=== PATIENT | male | born 1985 | race Caucasian/White ===

== ENCOUNTER 2016-06-12 00:47 | Emergency (ER) ==
[2016-06-12 00:58] VITALS: BP 160/116; TEMP 99.2; BMI 35.2
[2016-06-12] MEDS ORDERED: NORFLEX IM STA (01:36)
[2016-06-12] MEDS ORDERED: DILAUDID 2 MG/ML SYRINGE IM STA (01:36)
[2016-06-12] MEDS ORDERED: PHENERGAN 25 MG/ML VIAL IM STA (01:36)
--- NOTE | 2016-06-12 02:11 | CT ---
EXAM: CT scan lumbar spine HISTORY: Low back pain COMPARISON: MRI lumbar spine 05/04/2014 FINDINGS: Contiguous axial images were obtained through the lumbar spine utilizing 3-mm collimation . Sagittal and coronal reconstructions were imaged and reviewed. There is bilateral pars defect at L5. There is 3.5 mm anterolisthesis of L5 in relation to S1. Postoperative changes noted at L5-S1 co mpatible with prior discectomy and interbody fusion. Anterior metallic plate and screws are intact. . Transpedicular screw fixation is noted on the left L5-S1 There is mild pseudo disc bulge at L5-S1 . Central canal and foramen are patent.. Nonobstructive bilateral nephrolithiasis. IMPRESSION: Postoperative changes L5-S1 with intact hardware. 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
[2016-06-12] MEDS ORDERED: MORPHINE 4 MG/ML SYRINGE IM STA ×2 (02:26→05:26)
[2016-06-12] MEDS ORDERED: ZOFRAN 4 MG/2 ML IM STA ×2 (03:27→05:26)
[2016-06-12 03:49] LABS: BASOPHILS # (AUTO) 0.1 K/uL (0-0.2); BASOPHILS % (AUTO) 0.7 % (0.0-3.0); EOSINOPHILS # (AUTO) 0.7 K/ul (0.0-0.7); EOSINOPHILS % (AUTO) 7.9 % (0.0-7.0); HEMATOCRIT 31.8 % (42.0-52.0); HEMOGLOBIN 9.2 g/dl (14.0-18.0); IMMATURE GRANULOCYTE % (AUTO) 0.1 % (0.0-5.0); LYMPHOCYTES # (AUTO) 3.5 K/uL (0.60-3.4); LYMPHOCYTES % (AUTO) 39.3 (10.0-50.0); MEAN CORPUSCULAR HEMOGLOBIN 20.2 pg (27.0-31.0); MEAN CORPUSCULAR HGB CONC 28.9 (31.8-35.4); MEAN CORPUSCULAR VOLUME 69.9 fl (80.0-94.0); MONOCYTES # (AUTO) 0.4 K/uL (0.4-2.0); MONOCYTES % (AUTO) 4.9 (0-10); NEUTROPHILS # (AUTO) 4.2 K/ul (2.0-6.9); NEUTROPHILS % (AUTO) 47.1; PLATELET COUNT 498 10^3/uL (140-440); RED BLOOD COUNT 4.55 10^6/ul (4.70-6.10)
[2016-06-12 04:06] LABS: BUN/CREATININE RATIO 13.27; CREATININE 1.13 mg/dL (0.60-1.10)
--- NOTE | 2016-06-12 04:10 | CT ---
EXAM: CT of the abdomen and pelvis without contrast. HISTORY: Flank pain. History of kidney stones. PROCEDURE: Contiguous axial CT images of the abdomen and pelvis without contrast with coronal and s agittal reformats. FINDINGS: The liver, gallbladder, pancreas, spleen and adrenal glands are normal in appearance. The re are multiple nonobstructive calcifications in both kidneys. No ureterolithiasis or hydronephrosis . There is a small cyst in the right kidney. The abdominal aorta is normal in appearance. The visu alized loops of bowel and appendix are normal in appearance. No free fluid or free air in the abdom en or pelvis. The bladder is adequately filled with no abnormality identified. The seminal vesicles and prostate gland are unremarkable. There is surgical hardware in the spine. Impression: Nonobstructive bilateral nephrolithiasis as described. No ureterolithiasis or hydronep hrosis. Simple right renal cyst.
[2016-06-12 04:22] LABS: ERYTHROCYTE SEDIMENTATION RATE 10 mm/hr (0-15); ESR INTERNAL QC INTERNAL QC VALID
--- NOTE | 2016-06-12 05:30 | ED.PDOC ---
General ED Provider: Dr. AUSTNI SERRANO-ER Chief Complaint: Back Pain Stated Complaint: howie got back pain Time Seen by Physician: 00:55 Mode of Arrival: Walk-In Information Source: Patient Exam Limitations: No limitations Primary Care Provider: KIA COMBS Nursing and Triage Documentation Reviewed and Agree: Yes Musculoskeletal Complaint Exam - Back Pain Complaint/Exam Mechanism of Injury: Reports: No known trauma Onset/Duration: several weeks Symptoms Are: Still present Timing: Constant Initial Severity: Mild Current Severity: Moderate Location: Reports: Discrete Character: Reports: Dull, Aching, Throbbing Aggravating: Reports: Movements, Lifting, Bending, Walking Alleviating: Reports: None Associated Signs and Symptoms: Denies: Swelling, Redness, Bruising, Fever, Weakness, Numbness, Tingling, Abdominal pain, Flank pain, Bladder incontinence, Bowel incontinence, Weight loss, Pain with weight bearing Related History: Reports: Similar episode Cauda Equina Risk Factors: Reports: None Related Surgical History: Reports: Back Surgery Focal Tenderness: Yes Paraspinal Muscle Tenderness: Yes Paraspinal Muscle Spasm: No Scoliosis: No Lordosis: No Kyphosis: No SLR Test: Right Negative, Left Negative Hip Motion Testing Pain: Right Negative, Left Negative Focal Weakness: Present: None Focal Sensory Loss: Present: None Gait: Present: Abnormal Differential Diagnoses: Herniated Disk, Renal Colic Review of Systems - Review Of Systems Constitutional: Reports: No symptoms Eyes: Reports: No symptoms Ears, Nose, Mouth, Throat: Reports: No symptoms Respiratory: Reports: No symptoms Cardiac: Reports: No symptoms GI: Reports: No symptoms : Reports: No symptoms Musculoskeletal: Reports: Back pain Skin: Reports: No symptoms Neurological: Reports: No symptoms Endocrine: Reports: No symptoms Hematologic/Lymphatic: Reports: No symptoms All Other Systems: Reviewed and Negative Past Medical History - Past Medical History Previously Healthy: Yes Endocrine: Reports: None Cardiovascular: Reports: None Respiratory: Reports: None Hematological: Reports: None Gastrointestinal: Reports: None Genitourinary: Reports: Kidney stones Neuro/Psych: Reports: None Musculoskeletal: Reports: Back Pain Cancer: Reports: None - Surgical History General Surgical History: Reports: None - Family History Family History: Reports: None - Social History Smoking Status: Former smoker Hx Substance Use: No Alcohol Screening: None Lives: With family - Immunizations Tetanus Shot up to Date: Yes Physical Exam - Physical Exam Appearance: Well-appearing, No pain distress, Well-nourished Eyes: LITA, EOMI, Conjunctiva clear ENT: Ears normal, Nose normal, Oropharynx normal Neck: Supple Respiratory: Airway patent, Breath sounds clear, Breath sounds equal, Respirations nonlabored Cardiovascular: RRR, Pulses normal, No rub, No murmur GI/: Soft, Nontender, No masses, Bowel sounds normal, No Organomegaly Musculoskeletal: Limited ROM Skin: Warm, Dry, Normal color Neurological: Sensation intact, Motor intact, Reflexes intact, Cranial nerves intact, Alert, Oriented Psychiatric: Affect appropriate, Mood appropriate Interpretation - Radiology Interpretation Radiology Interpretation By: Radiologist Radiology Results: Positive Exam Interpreted: CT Scan Re-Evaluation - Re-Evaluation Time of Re-Evaluation: 06:16 Status: Improved Vital Signs Stable: Yes Pain Level: 2 Appearance: NAD Lungs: Clear Skin: Warm and Dry Neuro: Alert and Oriented X3 CV: RRR Critical Care Note - Critical Care Note Total Time (mins): 0 Course - Course Hematology/Chemistry: 06/12/16 03:45 06/12/16 03:45 Orders, Labs, Meds: Lab Review 06/12/16 03:45 WBC 8.90 RBC 4.55 L Hgb 9.2 L Hct 31.8 L MCV 69.9 L MCH 20.2 L MCHC 28.9 L RDW Coeff of Brigida 14.8 Plt Count 498 H Immature Gran % (Auto) 0.1 Neut % (Auto) 47.1 Lymph % (Auto) 39.3 Dickey % (Auto) 4.9 Eos % (Auto) 7.9 H Baso % (Auto) 0.7 Immature Gran # (Auto) 0.0 Neut # 4.2 Lymph # 3.5 H Dickey # 0.4 Eos # 0.7 Baso # 0.1 ESR 10 Sodium 142 Potassium 4.0 Chloride 107 Carbon Dioxide 24 Anion Gap 15.0 BUN 15 Creatinine 1.13 H Estimated GFR (MDRD) 75.00 BUN/Creatinine Ratio 13.27 Glucose 102 H Calcium 9.0 Orders Category Date Time Status BASIC METABOLIC PANEL Stat LAB 06/12/16 03:45 Completed BLOOD CULTURE Stat LAB 06/12/16 03:45 Received CBC W/ AUTO DIFF Stat LAB 06/12/16 03:45 Completed ESR Stat LAB 06/12/16 03:45 Completed Hydromorphone HCl/Pf [Dilaudid 2 mg/ml Syringe] MEDS 06/12/16 01:36 Discontinued 2 mg IM ONCE STA Morphine Sulfate [Morphine 4 mg/ml Syringe] MEDS 06/12/16 02:26 Discontinued 4 mg IM ONCE STA Morphine Sulfate [Morphine 4 mg/ml Syringe] MEDS 06/12/16 05:26 Discontinued 4 mg IM ONCE STA Ondansetron HCl/Pf [Zofran 4 mg/2 ml] MEDS 06/12/16 03:27 Discontinued 4 mg IM ONCE STA Ondansetron HCl/Pf [Zofran 4 mg/2 ml] MEDS 06/12/16 05:26 Discontinued 4 mg IM ONCE STA Orphenadrine Citrate [Norflex] MEDS 06/12/16 01:36 Discontinued 60 mg IM ONCE STA Promethazine HCl [Phenergan 25 mg/ml Vial] MEDS 06/12/16 01:36 Discontinued 25 mg IM ONCE STA CT ABD/PEL WO RENAL STONE PROT Stat RADS 06/12/16 03:[address] LUMBAR SPINE W/O CONTRAST Stat RADS 06/12/16 01:37 Completed Medications Discontinued Medications Generic Name Dose Route Start Last Admin Trade Name Freq PRN Reason Stop Dose Admin Hydromorphone HCl 2 mg 06/12/16 01:36 06/12/16 01:49 Dilaudid 2 Mg/Ml Syringe IM 06/12/16 01:37 2 mg ONCE STA Administration Morphine Sulfate 4 mg 06/12/16 02:26 06/12/16 02:35 Morphine 4 Mg/Ml Syringe IM 06/12/16 02:27 4 mg ONCE STA Administration Morphine Sulfate 4 mg 06/12/16 05:26 06/12/16 05:38 Morphine 4 Mg/Ml Syringe IM 06/12/16 05:27 4 mg ONCE STA Administration Ondansetron HCl 4 mg 06/12/16 03:27 06/12/16 03:48 Zofran 4 Mg/2 Ml IM 06/12/16 03:28 4 mg ONCE STA Administration Ondansetron HCl 4 mg 06/12/16 05:26 06/12/16 05:38 Zofran 4 Mg/2 Ml IM 06/12/16 05:27 4 mg ONCE STA Administration Orphenadrine Citrate 60 mg 06/12/16 01:36 06/12/16 01:49 Norflex IM 06/12/16 01:37 60 mg ONCE STA Administration Promethazine HCl 25 mg 06/12/16 01:36 06/12/16 01:50 Phenergan 25 Mg/Ml Vial IM 06/12/16 01:37 25 mg ONCE STA Administration Vital Signs: Temp Pulse Resp BP Pulse Ox 06/12/16 00:48 99.2 F 115 H 24 160/116 H 98 Departure - Departure Time of Disposition: 06:16 Disposition: HOME SELF-CARE Discharge Problem: Low back pain Qualifiers: Chronicity: unspecified Back pain laterality: bilateral Sciatica presence: without sciatica Qualifier Code: (M54.5) Low back pain Instructions: Back Pain (ED) Condition: Good Pt referred to PMD for follow-up: Yes Additional Instructions: percocet 7.5mg q 4hrs prn pain #10--f/u with pcp Allergies/Adverse Reactions: Allergies cat dander Adverse Reaction (Verified 02/21/16 18:26) PORK CHOPS Adverse Reaction (Uncoded 06/12/16 00:59) Hives GETS HIVES AND THROAT SWELLING IF EATS PORK CHOPS. IS OK WITH ANY OTHER TYPES OF PORK Home Medications: Ambulatory Orders Ranitidine HCl [Zantac] 150 mg PO TID 03/17/14 Baclofen 10 mg PO DAILY PRN 12/27/15 Clonazepam [Klonopin] 0.5 mg PO BID 12/27/15 Dextroamphetamine/Amphetamine [Adderall 10 mg Tablet] 20 mg PO DAILY 12/27/15 Pregabalin [Lyrica] 150 mg PO BID 12/27/15 Escitalopram Oxalate [Lexapro] 20 mg PO DAILY #30 01/06/16 Zolpidem Tartrate [Ambien] 10 mg PO BEDTIME 01/06/16 Disposition Discussed With: Patient
== END 2016-06-12 06:29 | disposition home or self-care (01) ==
LOC: ED 00:47
DX: M54.5 Low back pain (principal); Z79.899 Other long term (current) drug therapy; Z87.442 Personal history of urinary calculi
CPT/HCPCS: 36415; 74176; 80048; 85025; 85651; 87040; 96372; 99283

== ENCOUNTER 2016-11-19 14:58 | Emergency (ER) ==
[2016-11-19 15:04] VITALS: BP 152/87; TEMP 99.5; BMI 39.2
[2016-11-19] MEDS ORDERED: MORPHINE 10 MG/ML SYRINGE IVP STA (15:11)
[2016-11-19] MEDS ORDERED: MORPHINE 4 MG/ML VIAL IVP STA (15:11)
[2016-11-19] MEDS ORDERED: SODIUM CHLORIDE 1,000 ML IV STA (15:11)
[2016-11-19] MEDS ORDERED: ZOFRAN 4 MG/2 ML IVP STA (15:11)
[2016-11-19] MEDS ORDERED: PHENERGAN 25 MG/ML VIAL 25 MG in SODIUM CHLORIDE 50 ML IV STA (15:13)
[2016-11-19 15:26] LABS: BASOPHILS # (AUTO) 0.1 K/uL (0-0.2); BASOPHILS % (AUTO) 1.3 % (0.0-3.0); EOSINOPHILS # (AUTO) 0.5 K/ul (0.0-0.7); EOSINOPHILS % (AUTO) 9.5 % (0.0-7.0); HEMATOCRIT 30.4 % (42.0-52.0); HEMOGLOBIN 8.4 g/dl (14.0-18.0); IMMATURE GRANULOCYTE % (AUTO) 0.2 % (0.0-5.0); LYMPHOCYTES # (AUTO) 2.2 K/uL (0.60-3.4); LYMPHOCYTES % (AUTO) 40.2 (10.0-50.0); MEAN CORPUSCULAR HEMOGLOBIN 17.7 pg (27.0-31.0); MEAN CORPUSCULAR HGB CONC 27.6 (31.8-35.4); MEAN CORPUSCULAR VOLUME 64.1 fl (80.0-94.0); MONOCYTES # (AUTO) 0.3 K/uL (0.4-2.0); MONOCYTES % (AUTO) 6.1 (0-10); NEUTROPHILS # (AUTO) 2.3 K/ul (2.0-6.9); NEUTROPHILS % (AUTO) 42.7; PLATELET COUNT 429 10^3/uL (140-440); RED BLOOD COUNT 4.74 10^6/ul (4.70-6.10); WHITE BLOOD COUNT 5.45 K/ul (4.2-10.2)
[2016-11-19] MEDS ORDERED: PHENERGAN 25 MG/ML VIAL ONE (15:31)
--- NOTE | 2016-11-19 15:36 | CT ---
EXAM: Noncontrast CT of the abdomen and pelvis. HISTORY: Abdominal pain. COMPARISON: 12/27/2015. TECHNIQUE: Contiguous axial images at 3 mm intervals were obtained from lung bases through the pelvi s. No contrast was given. Coronal reformats were reviewed. FINDINGS: The study is limited without contrast. CHEST: The lung bases show no lobar consolidation or effusion. The heart size is within normal limi ts. ABDOMEN: Evaluation of the soft tissue organs is limited without contrast. The dome of the liver is not entirely imaged on the study. LIVER: Noncontrast images of the liver show no solid mass lesion or intrahepatic ductal dilatation. BILIARY: The gallbladder is not well distended. No gallstones are noted. No pericholecystic fluid or inflammation. The common bile duct is normal. SPLEEN: The spleen is unremarkable. PANCREAS: The pancreas shows no mass lesion or peripancreatic inflammation. ADRENAL GLANDS: The adrenal glands are normal. RENAL: The kidneys show no hydronephrosis. Multiple nonobstructing calcifications are seen bilatera lly. The largest on the left measures up to 5 mm and is unchanged. The largest on the right measure s up to 5 mm as well. There are no obstructing ureteral stones. No solid mass lesions are identifie d. RETROPERITONEUM: The aorta is unopacified. No aneurysm is identified. No aortic calcifications are seen. There is no retroperitoneal or mesenteric adenopathy. BOWEL: The bowel is unopacified. There is no obstruction or inflammatory change. There is no free fluid or free air. No significant inflammatory changes are seen. Minimal diverticulosis is seen wi thout evidence of acute diverticulitis. The appendix is identified and is normal. PELVIS: BLADDER: The bladder is not well distended which limits evaluation. GENITOURINARY STRUCTURES: The prostate is unremarkable. OSSEOUS STRUCTURES: The osseous structures are normal for age. There are postoperative changes with discectomy and fusion at at L5 S1. Pedicle screws are seen on the left as well. There is a bilatera l pars defect at L5. IMPRESSION 1. No acute intra-abdominal abnormality. Limited study without contrast. No obstructing ureteral s tones. 2. The appendix is normal. 3. Bilateral pars defect at L5. Postoperative changes at L5 S1. 4. Bilateral nephrolithiasis. No obstructing stones.
[2016-11-19 15:41] LABS: ANISOCYTOSIS 2+ (NOT PRESENT); HYPOCHROMASIA 3+ (NOT PRESENT); MICROCYTOSIS 3+ (NOT PRESENT); POIKILOCYTOSIS 3+ (NOT PRESENT)
[2016-11-19 15:42] LABS: OVALOCYTES 1+ (NOT PRESENT)
[2016-11-19 15:45] LABS: ALBUMIN 3.9 g/dL (3.4-5.0); ALBUMIN/GLOBULIN RATIO 1.22; ANION GAP 13.6; BILIRUBIN,TOTAL 0.3 mg/dL (0.00-1.20); BUN/CREATININE RATIO 9.4; CALCIUM 9.4 mg/dL (8.2-10.2); CREATININE 1.17 mg/dL (0.60-1.10); POTASSIUM 3.6 mmol/L (3.5-5.1); TOTAL PROTEIN 7.1 g/dL (6.4-8.2)
--- NOTE | 2016-11-19 16:11 | ED.PDOC ---
General ED Provider: Dr. LALITA KRAFT Chief Complaint: Kidney Stone Stated Complaint: renal stone Time Seen by Physician: 15:00 (seen with leroy has history of renal stones now has right flank pain) Mode of Arrival: Walk-In Information Source: Patient Exam Limitations: No limitations Primary Care Provider: KIA COMBS Nursing and Triage Documentation Reviewed and Agree: Yes Complaint Exam - Complaint/Exam Patient Complains of: Reports: Dysuria Onset/Duration: 1 day Symptoms Are: Still present Timing: Intermittent Initial Severity: Moderate Current Severity: Moderate Location of Pain: Reports: None Character: Reports: Colicky Aggravating: Reports: Voiding Associated Signs and Symptoms: Reports: Back pain, Dysuria. Denies: Diaphoresis , Fever, Hematuria, Constipation, Blood in stool, Rectal pain, Appetite change, Nausea, Vomiting, Penile swelling, Penile discharge, Decreased urine output, Increased urine frequency, Increased thirst, Decreased activity, Lethargy, Scrotal pain, Scrotal swelling, Abdominal Pain Testicular Torsion Risk Factors: Reports: None Surgical Obstruction Risk Factors: Reports: None Related Surgical History: Reports: None Abdominal Findings: Present: None Review of Systems - Review Of Systems Constitutional: Reports: No symptoms Eyes: Reports: No symptoms Ears, Nose, Mouth, Throat: Reports: No symptoms Respiratory: Reports: No symptoms Cardiac: Reports: No symptoms GI: Reports: No symptoms : Reports: Dysuria, Flank pain Musculoskeletal: Reports: No symptoms Skin: Reports: No symptoms Neurological: Reports: No symptoms Endocrine: Reports: No symptoms Hematologic/Lymphatic: Reports: No symptoms All Other Systems: Reviewed and Negative Past Medical History - Past Medical History Previously Healthy: Yes Endocrine: Reports: None Cardiovascular: Reports: None Respiratory: Reports: None Hematological: Reports: None Gastrointestinal: Reports: None Genitourinary: Reports: Kidney stones Neuro/Psych: Reports: None Musculoskeletal: Reports: Back Pain Cancer: Reports: None - Surgical History General Surgical History: Reports: None - Family History Family History: Reports: None - Social History Smoking Status: Former smoker Hx Substance Use: No Alcohol Screening: None - Immunizations Tetanus Shot up to Date: No Physical Exam - Physical Exam Appearance: Well-appearing, No pain distress, Well-nourished Eyes: LITA, EOMI, Conjunctiva clear ENT: Ears normal, Nose normal, Oropharynx normal Respiratory: Airway patent, Breath sounds clear, Breath sounds equal, Respirations nonlabored Cardiovascular: RRR, Pulses normal, No rub, No murmur GI/: Soft, Nontender, No masses, Bowel sounds normal, No Organomegaly Musculoskeletal: Normal strength, ROM intact, No edema, No calf tenderness Skin: Warm, Dry, Normal color Neurological: Sensation intact, Motor intact, Reflexes intact, Cranial nerves intact, Alert, Oriented Psychiatric: Affect appropriate, Mood appropriate Interpretation - Radiology Interpretation Radiology Interpretation By: Radiologist Radiology Results: No acute changes Exam Interpreted: CT Scan Re-Evaluation - Re-Evaluation Time of Re-Evaluation: 16:11 Status: Improved Vital Signs Stable: Yes Pain Level: 0 Appearance: NAD Lungs: Clear Skin: Warm and Dry Neuro: Alert and Oriented X3 CV: RRR Critical Care Note - Critical Care Note Total Time (mins): 0 Course - Course Hematology/Chemistry: 11/19/16 15:20 11/19/16 15:20 Orders, Labs, Meds: Lab Review 11/19/16 11/19/16 15:20 15:20 WBC 5.45 RBC 4.74 Hgb 8.4 L Hct 30.4 L MCV 64.1 L MCH 17.7 L MCHC 27.6 L RDW Coeff of Brigida 17.8 H Plt Count 429 Immature Gran % (Auto) 0.2 Neut % (Auto) 42.7 Lymph % (Auto) 40.2 Stone % (Auto) 6.1 Eos % (Auto) 9.5 H Baso % (Auto) 1.3 Immature Gran # (Auto) 0.0 Neut # 2.3 Lymph # 2.2 Stone # 0.3 L Eos # 0.5 Baso # 0.1 Hypochromasia 3+ Poikilocytosis 3+ Anisocytosis 2+ Microcytosis 3+ Ovalocytes 1+ Sodium 140 Potassium 3.6 Chloride 107 Carbon Dioxide 23 Anion Gap 13.6 BUN 11 Creatinine 1.17 H Estimated GFR (MDRD) 72.00 BUN/Creatinine Ratio 9.40 Glucose 138 H Calcium 9.4 Total Bilirubin 0.30 AST 11 L ALT 15 Alkaline Phosphatase 64 Total Protein 7.1 Albumin 3.9 Globulin 3.2 Albumin/Globulin Ratio 1.22 Orders Category Date Time Status ED IV/MEDIPORT/POWERPORT .ONCE EMERGENCY 11/19/16 15:10 Active CBC W/ AUTO DIFF Stat LAB 11/19/16 15:20 Completed COMPREHENSIVE METABOLIC PANEL Stat LAB 11/19/16 15:20 Completed RBC MORPHOLOGY Stat LAB 11/19/16 15:20 Completed URINALYSIS C & S IF INDICATED Stat LAB 11/19/16 15:10 Uncollected 0.9 % Sodium Chloride [Saline Flush] MEDS 11/19/16 15:10 Ordered 1 syr IVF PRN PRN Morphine Sulfate [Morphine 4 mg/ml Vial] MEDS 11/19/16 15:11 Discontinued 4 mg IVP ONCE STA Promethazine HCl [Phenergan 25 mg/ml Vial] MEDS 11/19/16 15:31 Discontinued 25 mg .ROUTE .STK-MED ONE Promethazine HCl [Phenergan 25 mg/ml Vial] 25 mg MEDS 11/19/16 15:13 Discontinued 0.9 % Sodium Chloride [Sodium Chloride] 50 ml IV ONCE Sodium Chloride 0.9% [Sodium Chloride] 1,000 ml MEDS 11/19/16 15:[address] ABDOMEN/PELVIS WO CONTRAST Stat RADS 11/19/16 15:10 Completed Medications Generic Name Dose Route Start Last Admin Trade Name Freq PRN Reason Stop Dose Admin Sodium Chloride 1,000 mls @ 1,000 mls/hr 11/19/16 15:11 11/19/16 15:35 Sodium Chloride IV 11/19/16 16:10 1,000 mls/hr BOLUS STA Administration Sodium Chloride 1 syr 11/19/16 15:10 11/19/16 15:35 Saline Flush IVF 1 syr PRN PRN Administration To flush IV Discontinued Medications Generic Name Dose Route Start Last Admin Trade Name Freq PRN Reason Stop Dose Admin Promethazine HCl 25 mg/ Sodium 51 mls @ 75 mls/hr 11/19/16 15:13 11/19/16 15: 38 Chloride IV 11/19/16 15:53 75 mls/hr ONCE STA Administration Morphine Sulfate 4 mg 11/19/16 15:11 11/19/16 15:38 Morphine 4 Mg/Ml Vial IVP 11/19/16 15:12 4 mg ONCE STA Administration Vital Signs: Temp Pulse Resp BP Pulse Ox 11/19/16 14:59 99.5 F 125 H 20 152/87 H 98 Departure - Departure Time of Disposition: 16:11 Disposition: HOME SELF-CARE Discharge Problem: Kidney stone Instructions: Kidney Stones (ED), Renal Colic (ED), How to Strain Your Urine ( ED), Flank Pain (ED) Condition: Good Pt referred to PMD for follow-up: Yes Additional Instructions: Please call your Family Physician as soon as possible to schedule a follow-up appointment. Allergies/Adverse Reactions: Allergies cat dander Adverse Reaction (Verified 11/19/16 15:05) PORK CHOPS Adverse Reaction (Uncoded 06/12/16 00:59) Hives GETS HIVES AND THROAT SWELLING IF EATS PORK CHOPS. IS OK WITH ANY OTHER TYPES OF PORK Home Medications: Ambulatory Orders Clonazepam [Klonopin] 0.5 mg PO BID 12/27/15 Dextroamphetamine/Amphetamine [Adderall 10 mg Tablet] 20 mg PO DAILY 12/27/15 Pregabalin [Lyrica] 150 mg PO BID 12/27/15 Escitalopram Oxalate [Lexapro] 20 mg PO DAILY #30 01/06/16 Zolpidem Tartrate [Ambien] 10 mg PO BEDTIME 01/06/16 Famotidine [Pepcid] 20 mg PO DIRECTED 11/19/16 Disposition Discussed With: Patient
[2016-11-19 17:01] LABS: BILIRUBIN,URINE Negative (NEGATIVE); KETONES,URINE Trace (NEGATIVE); LEUKOCYTE ESTERASE ,URINE Negative (NEGATIVE); NITRITE,URINE Negative (NEGATIVE); PH,URINE 5.5 (5-9); PROTEIN,URINE Trace (NEGATIVE); URINE, BLOOD 2+ (NEGATIVE)
[2016-11-19 17:03] LABS: ADD URINE MICROSCOPIC YES
[2016-11-19 17:04] LABS: BACTERIA,URINE TRACE (NOT PRESENT)
== END 2016-11-19 17:15 | disposition home or self-care (01) ==
LOC: ED 14:58
DX: N20.0 Calculus of kidney (principal)
CPT/HCPCS: 36415; 80053; 81001; 85008; 85025; 87086; 96361; 96365; 96375; 99283

== ENCOUNTER 2017-04-02 17:04 | Emergency (ER) ==
[2017-04-02 17:15] VITALS: BP 160/104; TEMP 98.2; BMI 38.0
--- NOTE | 2017-04-02 18:21 | CT ---
Exam: CT of the abdomen and pelvis without contrast History: Abdominal pain Technique: [address] of the abdomen and pelvis without intravascular contrast FINDINGS: Tree-in-bud nodular infiltrate of the right lower lobe. No consolidative opacities. No s ignificant liver abnormality. The adrenals, pancreas and spleen are unremarkable. The stomach and hia tus are unremarkable.The gallbladder is normal. Multiple bilateral nonobstructing nephrolithiasis. No ureterolithiasis is seen. Left collecting system duplication. The appendix is normal. Bowel loop s demonstrate normal caliber. No inflamatory change seen in the mesentery or retroperitoneum. Vascula r structures appear normal by noncontrast CT. Pelvic genitourinary structures appear normal. Pelvic bowel loops are unremarkable. No inflammatory c hange in the pelvic fat. No acute abnormality of the abdominal or pelvic skeleton. Impression: 1. No inflammatory process, bowel or urinary obstruction is seen. 2. Multiple bilateral nonobstructing nephrolithiasis 3. Right lower lobe tree-in-bud nodular infiltrate without consolidation. Correlate for pneumonitis .
--- NOTE | 2017-04-02 18:25 | ED.PDOC ---
General ED Provider: Dr. LALITA KRAFT Chief Complaint: Kidney Stone Stated Complaint: LEFT FLANK PAIN DYSURIA Time Seen by Physician: 17:00 Mode of Arrival: Walk-In Information Source: Patient Exam Limitations: No limitations Primary Care Provider: K[facility] COM[facility] Nursing and Triage Documentation Reviewed and Agree: Yes Reviewed sepsis parameters & appropriate labs ordered?: Yes System Inflammatory Response Syndrome: Not Applicable Sepsis Protocol: For patient's 13 years and over: Temp is 96.8 and below OR 101 and greater Pulse >90 BPM Resp >20/minute Acutely Altered Mental Status Are patient's symptoms suggestive of a new infection, such as: -Pneumonia -Skin, Soft Tissue -Endocarditis -UTI -Bone, Joint Infection -Implantable Device -Acute Abdominal Infection -Wound Infection -Meningitis -Blood Stream Catheter Infection -Unknown System Inflammatory Response Syndrome: Not Applicable Review of Systems - Review Of Systems Constitutional: Reports: No symptoms Eyes: Reports: No symptoms Ears, Nose, Mouth, Throat: Reports: No symptoms Respiratory: Reports: No symptoms Cardiac: Reports: No symptoms GI: Reports: No symptoms : Reports: Flank pain (LEFT) Musculoskeletal: Reports: No symptoms Skin: Reports: No symptoms Neurological: Reports: No symptoms Endocrine: Reports: No symptoms Hematologic/Lymphatic: Reports: No symptoms All Other Systems: Reviewed and Negative Past Medical History - Past Medical History Previously Healthy: Yes Endocrine: Reports: None Cardiovascular: Reports: None Respiratory: Reports: None Hematological: Reports: None Gastrointestinal: Reports: None Genitourinary: Reports: Kidney stones Neuro/Psych: Reports: None Musculoskeletal: Reports: Back Pain Cancer: Reports: None - Surgical History General Surgical History: Reports: None - Family History Family History: Reports: None - Social History Smoking Status: Former smoker Hx Substance Use: No Alcohol Screening: None Physical Exam - Physical Exam Appearance: Well-appearing, No pain distress, Well-nourished Eyes: LITA, EOMI, Conjunctiva clear ENT: Ears normal, Nose normal, Oropharynx normal Respiratory: Airway patent, Breath sounds clear, Breath sounds equal, Respirations nonlabored Cardiovascular: RRR, Pulses normal, No rub, No murmur GI/: Soft, Nontender, No masses, Bowel sounds normal, No Organomegaly Musculoskeletal: Normal strength, ROM intact, No edema, No calf tenderness Skin: Warm, Dry, Normal color Neurological: Sensation intact, Motor intact, Reflexes intact, Cranial nerves intact, Alert, Oriented Psychiatric: Affect appropriate, Mood appropriate Interpretation - Radiology Interpretation Radiology Interpretation By: Radiologist Radiology Results: No acute changes Critical Care Note - Critical Care Note Total Time (mins): 0 Course - Course Hematology/Chemistry: 04/02/17 18:15 04/02/17 18:15 Orders, Labs, Meds: Lab Review 04/02/17 04/02/17 04/02/17 17:25 18:15 18:15 WBC 12.16 H RBC 4.71 Hgb 8.8 L Hct 31.4 L MCV 66.7 L MCH 18.7 L MCHC 28.0 L RDW Coeff of Brigida 17.4 H Plt Count 460 H Immature Gran % (Auto) 0.2 Neut % (Auto) 63.8 Lymph % (Auto) 24.5 [place] % (Auto) 4.7 Eos % (Auto) 5.9 Baso % (Auto) 0.9 Immature Gran # (Auto) 0.0 Neut # 7.8 H Lymph # 3.0 [place] # 0.6 Eos # 0.7 Baso # 0.1 Hypochromasia 2+ Anisocytosis Not present Microcytosis 2+ Sodium 140 Potassium 3.8 Chloride 105 Carbon Dioxide 27 Anion Gap 11.8 BUN 8 Creatinine 0.99 Estimated GFR (MDRD) 87.00 BUN/Creatinine Ratio 8.08 Glucose 100 Calcium 8.6 Total Bilirubin 0.3 AST 11 L ALT 11 L Alkaline Phosphatase 72 Total Protein 6.6 Albumin 3.6 Globulin 3.0 Albumin/Globulin Ratio 1.20 Urine Color Yellow Urine Clarity Clear Urine pH 7.5 Ur Specific [place] 1.015 Urine Protein Negative Urine Glucose (UA) Negative Urine Ketones Negative Urine Blood 2+ Urine Nitrite Negative Urine Bilirubin Negative Urine Urobilinogen 0.2 Ur Leukocyte Esterase Negative Urine Microscopic RBC 10-20 Ur Squamous Epith Cells Not present Orders Category Date Time Status CBC W/ AUTO DIFF Stat LAB 04/02/17 18:15 Completed COMPREHENSIVE METABOLIC PANEL Stat LAB 04/02/17 18:15 Completed RBC MORPHOLOGY Stat LAB 04/02/17 18:15 Completed URINALYSIS C & S IF INDICATED Stat LAB 04/02/17 17:[address] ABDOMEN/PELVIS WO CONTRAST Stat RADS 04/02/17 17:55 Completed Vital Signs: Temp Pulse Resp BP Pulse Ox 04/02/17 17:05 98.2 F 109 H 20 160/104 H 100 Departure - Departure Time of Disposition: 18:46 Disposition: HOME SELF-CARE Discharge Problem: Kidney stone Instructions: Kidney Stones (ED), Renal Colic (ED), How to Strain Your Urine ( ED), Flank Pain (ED) Condition: Good Pt referred to PMD for follow-up: Yes IPMP verified?: Yes Prescriptions: Hydrocodone/Acetaminophen [Warren 10-325 Tablet] 1 each PO Q8HR #10 tablet Allergies/Adverse Reactions: Allergies cat dander Adverse Reaction (Verified 04/02/17 17:15) PORK CHOPS Adverse Reaction (Uncoded 06/12/16 00:59) Hives GETS HIVES AND THROAT SWELLING IF EATS PORK CHOPS. IS OK WITH ANY OTHER TYPES OF PORK Home Medications: Ambulatory Orders Clonazepam [Klonopin] 0.5 mg PO BID 12/27/15 Dextroamphetamine/Amphetamine [Adderall 10 mg Tablet] 20 mg PO DAILY 12/27/15 Pregabalin [Lyrica] 150 mg PO BID 12/27/15 Escitalopram Oxalate [Lexapro] 20 mg PO DAILY #30 01/06/16 Zolpidem Tartrate [Ambien] 10 mg PO BEDTIME 01/06/16 Famotidine [Pepcid] 20 mg PO DIRECTED 11/19/16 Duloxetine HCl [Cymbalta] 20 mg PO DAILY 04/02/17 Hydrocodone/Acetaminophen [Warren 10-325 Tablet] 1 each PO Q8HR #10 tablet
== END 2017-04-02 18:58 | disposition home or self-care (01) ==
LOC: ED 17:04
DX: N20.0 Calculus of kidney (principal)
CPT/HCPCS: 36415; 80053; 81001; 85008; 85025; 99283

== ENCOUNTER 2017-06-05 15:41 | Outpatient (CLI) ==
--- NOTE | 2017-06-05 16:34 | DI ---
Exam: Two x-rays of the chest. Comparison: 10/27/2015. Reason for exam: Cough. FINDINGS: No pneumothorax, pleural effusion, or focal consolidation. The cardiac silhouette is not enlarged. The imaged osseous structures appear grossly unremarkable without acute fracture. Impression: No acute cardiopulmonary process.
== END 2017-06-05 15:42 | disposition home or self-care (01) ==
LOC: RAD 15:41
PROVIDERS: ATTEND Family Medicine
DX: R05 Cough (principal); J32.9 Chronic sinusitis, unspecified